=== PATIENT | female | born 1950 | race Caucasian/White ===

== ENCOUNTER 2017-11-05 11:38 | Outpatient (CLI) | payer MEDICARE, BC | END 2017-11-05 11:39 | disposition home or self-care (01) | LOC: BICMAMMO 11:38 | PROVIDERS: ATTEND Family Medicine | DX: Z12.31 Encounter for screening mammogram for malignant neoplasm of breast (principal); Z80.3 Family history of malignant neoplasm of breast | CPT/HCPCS: 77063; 77067 ==

== ENCOUNTER 2019-03-21 09:23 | Outpatient (CLI) | payer MEDICARE, BC ==
--- NOTE | 2019-03-21 10:07 | MMO ---
Bilateral MAMMO Bilat Screen [facility]. CLINICAL HISTORY: Patient is 69 years old and is seen for screening. The patient has the following family history of breast cancer: mother, at age 80. The patient has no personal history of cancer. The patient has a history of left Excisional Biopsy in 1988 - Benign. VIEWS: The views performed were: bilateral craniocaudal with tomosynthesis and bilateral mediolateral oblique with tomosynthesis. FILMS COMPARED: The present examination has been compared to prior imaging studies performed at [facility] on 10/17/2013, 11/30/2014, 01/24/2016 and 11/05/2017. MAMMOGRAM FINDINGS: There are scattered fibroglandular densities. There are benign appearing calcifications seen in both breasts. There are no suspicious masses, suspicious calcifications, or new areas of architectural distortion. IMPRESSION: THERE IS NO MAMMOGRAPHIC EVIDENCE OF MALIGNANCY. A ROUTINE FOLLOW-UP MAMMOGRAM IN 1 YEAR IS RECOMMENDED. THE RESULTS OF THIS EXAM WERE SENT TO THE PATIENT. ACR BI-RADS Category 2 - Benign finding MAMMOGRAPHY NOTE: 1. A negative mammogram report should not delay a biopsy if a dominant of clinically suspicious mass is present. 2. Approximately 10% to 15% of breast cancers are not detected by mammography. 3. Adenosis and dense breasts may obscure an underlying neoplasm.
== END 2019-03-21 09:24 | disposition home or self-care (01) ==
LOC: BICMAMMO 09:23
PROVIDERS: ATTEND Family Medicine
DX: Z12.31 Encounter for screening mammogram for malignant neoplasm of breast (principal); Z80.3 Family history of malignant neoplasm of breast
CPT/HCPCS: 77063; 77067

== ENCOUNTER 2021-06-13 08:53 | Outpatient (CLI) | payer MEDICARE, BC | END 2021-06-13 08:54 | disposition home or self-care (01) | LOC: BICMAMMO 08:53 | PROVIDERS: ATTEND Student in an Organized Health Care Education/Training Program | DX: Z12.31 Encounter for screening mammogram for malignant neoplasm of breast (principal); Z91.89 Other specified personal risk factors, not elsewhere classified; Z80.3 Family history of malignant neoplasm of breast | CPT/HCPCS: 77063; 77067 ==

== ENCOUNTER 2022-08-21 09:12 | Outpatient (CLI) | payer MEDICARE, BC | END 2022-08-21 09:13 | disposition home or self-care (01) | LOC: MRI 09:12 | PROVIDERS: ATTEND Anesthesiology Pain Medicine | DX: M47.27 Other spondylosis with radiculopathy, lumbosacral region (principal); M47.26 Other spondylosis with radiculopathy, lumbar region; M47.25 Other spondylosis with radiculopathy, thoracolumbar region; Z98.890 Other specified postprocedural states | CPT/HCPCS: 72148 ==

== ENCOUNTER 2022-08-21 10:41 | Outpatient (CLI) | payer MEDICARE, BC | END 2022-08-21 10:42 | disposition home or self-care (01) | LOC: RAD 10:41 | PROVIDERS: ATTEND Anesthesiology Pain Medicine | DX: M54.17 Radiculopathy, lumbosacral region (principal); M47.816 Spondylosis without myelopathy or radiculopathy, lumbar region; Z98.890 Other specified postprocedural states | CPT/HCPCS: 72110; 72148 ==

== ENCOUNTER 2022-08-24 12:33 | Outpatient (CLI) | payer MEDICARE, BC | END 2022-08-24 12:34 | disposition home or self-care (01) | LOC: BICMAMMO 12:33 | PROVIDERS: ATTEND Student in an Organized Health Care Education/Training Program | DX: Z12.31 Encounter for screening mammogram for malignant neoplasm of breast (principal); N64.89 Other specified disorders of breast; Z91.89 Other specified personal risk factors, not elsewhere classified; Z80.3 Family history of malignant neoplasm of breast | CPT/HCPCS: 77063; 77067 ==

== ENCOUNTER 2022-08-28 09:45 | Outpatient (CLI) | payer MEDICARE, BC | END 2022-08-28 09:46 | disposition home or self-care (01) | LOC: BICMAMMO 09:45 | PROVIDERS: ATTEND Student in an Organized Health Care Education/Training Program | DX: N64.89 Other specified disorders of breast (principal) | CPT/HCPCS: 77065; G0279 ==

== ENCOUNTER 2023-08-30 08:01 | Outpatient (CLI) | payer MEDICARE, BC | END 2023-08-30 08:02 | disposition home or self-care (01) | LOC: BICMAMMO 08:01 | PROVIDERS: ATTEND Nurse Practitioner Family | DX: Z12.31 Encounter for screening mammogram for malignant neoplasm of breast (principal); Z91.89 Other specified personal risk factors, not elsewhere classified; Z80.3 Family history of malignant neoplasm of breast; Z78.0 Asymptomatic menopausal state | CPT/HCPCS: 77063; 77067 ==

== ENCOUNTER 2023-09-03 12:50 | Outpatient (CLI) | payer MEDICARE, BC | END 2023-09-03 12:51 | disposition home or self-care (01) | LOC: BICMAMMO 12:50 | PROVIDERS: ATTEND Nurse Practitioner Family | DX: Z13.820 Encounter for screening for osteoporosis (principal); M81.0 Age-related osteoporosis without current pathological fracture; M85.852 Other specified disorders of bone density and structure, left thigh; M85.851 Other specified disorders of bone density and structure, right thigh; Z78.0 Asymptomatic menopausal state | CPT/HCPCS: 77080 ==

== ENCOUNTER 2024-10-14 08:56 | Outpatient (CLI) | payer MEDICARE | END 2024-10-14 08:57 | disposition home or self-care (01) | LOC: BICMAMMO 08:56 | PROVIDERS: ATTEND Nurse Practitioner Family | DX: Z12.31 Encounter for screening mammogram for malignant neoplasm of breast (principal); Z80.3 Family history of malignant neoplasm of breast; Z91.89 Other specified personal risk factors, not elsewhere classified | CPT/HCPCS: 77063; 77067 ==